=== PATIENT | male | born 1985 ===

== ENCOUNTER 2022-03-08 22:46 | Emergency (ER) | payer SELFPAY ==
[~2022-03-08] VITALS: Ht 170.2 cm; Wt 100.0 kg
[2022-03-08] MEDS ORDERED: METF-1211 PO (22:59)
[2022-03-08] MEDS ORDERED: SODIUM CHLORIDE 0.9% 1,000 ML IV ONE (23:45)
[2022-03-08] MEDS ORDERED: POVIDONE-IODINE 10% 120 ML SOLUTION TP ONE (23:45)
[2022-03-08] MEDS ORDERED: INSULIN REGULAR, HUMAN 100 UNITS/ML IVP ONE (23:45)
[2022-03-08] MEDS ORDERED: LIDOCAINE 1% 10 ML VIAL SQ ONE (23:45)
[2022-03-09] MEDS ORDERED: INSULIN REGULAR, HUMAN 100 UNITS/ML IVP ONE (01:00)
[2022-03-09 01:15] LABS: ANION GAP 5 mmol/L (8-16); CALCIUM, TOTAL 9.3 mg/dL (8.8-10.5); CARBON DIOXIDE 29 mmol/L (22-29); CHLORIDE 97 mmol/L (98-107); CREATININE 1.19 mg/dL (0.60-1.30); GLOMERULAR FILTR. RATE CALC > 60 mL/min (>60); POTASSIUM 4.5 mmol/L (3.5-5.1); SODIUM SERUM 131 mmol/L (136-145); UREA NITROGEN, BLOOD 16 mg/dL (7-18)
[2022-03-09 01:17] LABS: GLUCOSE,RANDOM 485 mg/dL (70-110)
[2022-03-09] MEDS ORDERED: IBUP-2070 PO (01:22)
[2022-03-09] MEDS ORDERED: SULF-261 PO (01:22)
[2022-03-09 02:56] VITALS: BP 163/83
== END 2022-03-09 03:00 | disposition home or self-care (01) ==
LOC: EMS 22:50
DX: L05.01 Pilonidal cyst with abscess (principal); E11.65 Type 2 diabetes mellitus with hyperglycemia; I10 Essential (primary) hypertension; Z79.84 Long term (current) use of oral hypoglycemic drugs
CPT/HCPCS: 96374; 96361; 10080; 99283; 80048; 82962; 36415; 82948; J7030; J1815 ×2; J3490